=== PATIENT | female | born 1965 | race American Indian/Alaskan Native ===

== ENCOUNTER 2017-03-04 00:49 | Emergency (ER) | payer SELFPAY ==
[2017-03-04 00:57] VITALS: PULSE 94; RESP 18; TEMP 97.5; O2SAT 99
[2017-03-04 01:09] VITALS: BP 160/87
--- NOTE | 2017-03-04 01:22 | C.PDOC ---
History Of Present Illness 52 year old female presents to the with a complaint of feeling anxious after having an argument with her daughter. Patient checked her BP and saw it was elevated and began having neck pain which concerned her and prompted visit. Denies chest pain, SOB, nausea, and vomiting. Time Seen by Provider: 03/04/17 01:17 Chief Complaint (Nursing): High Blood Pressure History Per: Patient History/Exam Limitations: no limitations Onset/Duration Of Symptoms: Mins Current Symptoms Are (Timing): Still Present Associated Symptoms: denies: Chest Pain, Dyspnea, Dizziness, Blurred Vision, Focal Weakness, Headache Quality Of Symptoms: Asymptomatic Exacerbating Factor(s): Pos: None Recent travel outside of the [place]: No Past Medical History Reviewed: Historical Data, Nursing Documentation, Vital Signs Vital Signs: Last Vital Signs Temp 97.5 F L 03/04/17 00:52 Pulse 94 H 03/04/17 00:52 Resp 18 03/04/17 00:52 BP 160/87 H 03/04/17 01:08 Pulse Ox 99 03/04/17 01:22 - Medical History PMH: No Chronic Diseases Surgical History: No Surg Hx Family History: States: Unknown Family Hx - Social History Hx Alcohol Use: No Hx Substance Use: No - Immunization History Hx Tetanus Toxoid Vaccination: Yes Hx Influenza Vaccination: Yes Hx Pneumococcal Vaccination: No Review Of Systems Constitutional: Negative for: Fever, Chills Cardiovascular: Negative for: Chest Pain, Orthopnea Respiratory: Negative for: Shortness of Breath Gastrointestinal: Negative for: Nausea, Vomiting Musculoskeletal: Positive for: Neck Pain Neurological: Negative for: Dizziness Physical Exam - Physical Exam Appears: Non-toxic, No Acute Distress Skin: Normal Color, Warm, Dry Head: Atraumatic, Normacephalic Eye(s): bilateral: Normal Inspection, PERRL, EOMI Oral Mucosa: Moist Neck: Normal, Supple Chest: Symmetrical Cardiovascular: Rhythm Regular Respiratory: Normal Breath Sounds, No Rales, No Rhonchi, No Wheezing Gastrointestinal/Abdominal: Soft, No Tenderness Neurological/Psych: Oriented x3, Normal Speech, Normal Cognition ED Course And Treatment ECG: Interpreted By Me, Viewed By Me ECG Rhythm: Sinus Rhythm ECG Interpretation: Normal Rate From EC O2 Sat by Pulse Oximetry: 99 (Room air) Pulse Ox Interpretation: Normal Progress Note: Patient slept in the ER for a half hour and reports improvement of discomfort. Medical Decision Making Medical Decision Making: anxiety reaction, arguing with her daughter normal physical and neuro exam bp returning to normal pt declines BP meds, and w/u with informed consent. Disposition Doctor Will See Patient In The: Office Counseled Patient/Family Regarding: Studies Performed, Diagnosis - Disposition Referrals: [facility] [Outside] [facility] [Outside] [facility] [Outside] [facility] [Outside] Disposition: HOME/ ROUTINE Disposition Time: 01:22 Condition: GOOD Additional Instructions: continue relaxation and anti-anxiety methods Follow-up with your PMD or our outpatient Clinic as needed Instructions: Anxiety (ED) Forms: [employer] ([place]) - Clinical Impression Clinical Impression: Anxiety reaction - Scribe Statement The provider has reviewed the documentation as recorded by the Scribkhoa Carroll All medical record entries made by the Scribe were at my direction and personally dictated by me. I have reviewed the chart and agree that the record accurately reflects my personal performance of the history, physical exam, medical decision making, and the department course for this patient. I have also personally directed, reviewed, and agree with the discharge instructions and disposition.
--- NOTE | 2017-03-06 11:16 | CARD ---
APPROVED REPORT EKG Measurement Heart [id number] <Conclusion> Normal sinus rhythm Normal ECG
== END 2017-03-04 01:46 | disposition home or self-care (01) ==
LOC: C.ER 00:49 → EDBD 00:49 → C.ER 01:46
DX: F41.1 Generalized anxiety disorder (principal)